=== PATIENT | male | born 1990 | race Caucasian/White ===

== ENCOUNTER 2020-11-15 08:27 | Emergency (ER) | payer OTHER ==
[2020-11-15 09:15] LABS: BILIRUBIN NEGATIVE (NEGATIVE); BLOOD NEGATIVE Ery/uL (NEGATIVE); CLARITY CLEAR (CLEAR); COLOR YELLOW (YELLOW); GLUCOSE (U) NORMAL (NORMAL); LEUKOCYTES NEGATIVE Leu/uL (NEGATIVE); NITRITE NEGATIVE (NEGATIVE); PROTEIN NEGATIVE (NEGATIVE); SPECIFIC GRAVITY 1.025 (1.001-1.030)
[2020-11-15 09:15] LABS: BASOPHIL 1.1 % (0-2); EOSINOPHIL 6.7 % (0-5); HCT 49.2 % (42.0-52.0); HGB 16.7 g/dl (13.2-18.0); LYMPHOCYTE 24.5 % (15-48); MCH 29.9 pg (25.0-31.0); MCHC 33.9 g/dL (32.0-36.0); MCV 88.2 fL (78.0-100.0); MONOCYTE 8.5 % (0-12); MPV 10.7 fL (6.0-9.5); NRBC 0; PLT 168 K/uL (150-400); RBC 5.58 M/uL (4.70-6.00); RDW 12.6 % (11.5-14.0); WBC 6.6 K/uL (4.0-10.5)
[2020-11-15] MEDS ORDERED: BENTYL10 MG PO (09:21)
[2020-11-15] MEDS ORDERED: ONDANSETRON ODT4 MG PO (09:21)
[2020-11-15 09:29] LABS: ALBUMIN 4.6 g/dL (3.4-5.0); BILIRUBIN - TOTAL 0.4 mg/dL (0.2-1.0); BUN/CREAT RATIO (CALC) 17.8 RATIO; CREATININE 1.01 mg/dL (0.67-1.17); GLOBULIN (CALCULATION) 3.7 g/dL; POTASSIUM 4.1 mmol/L (3.5-5.1); TOTAL PROTEIN 8.3 g/dL (6.4-8.2)
== END 2020-11-15 10:01 | disposition home or self-care (01) ==
LOC: FER 08:27
PROVIDERS: Emergency Medicine
DX: R10.30 Lower abdominal pain, unspecified (principal)
CPT/HCPCS: 36415; 80053; 81003; 85025; 99284